=== PATIENT | female | born 1945 | race Caucasian/White ===

== ENCOUNTER → 2017-08-15 | Outpatient (CLI) | payer MEDICARE, BC ==
--- NOTE | 2017-08-16 08:24 | MM ---
Reason for exam: screening (asymptomatic). Last mammogram was performed 1 year and 4 months ago. History: Patient is postmenopausal. Family history of breast cancer in sister at age 61. Took hormonal contraceptives for 18 years. Physical Findings: A clinical breast exam by your physician is recommended on an annual basis and results should be correlated with mammographic findings. MG 3D Screening Mammo W/Cad Bilateral CC and MLO view(s) were taken. Prior study comparison: April 27, 2016, bilateral MG 3d screening mammo w/cad. April 18, 2015, bilateral MG 3d screening mammo w/cad. The breast tissue is almost entirely fat. Stable vascular calcifications. There is no discrete abnormality. No significant changes when compared with prior studies. ASSESSMENT: Benign, BI-RAD 2 RECOMMENDATION: Routine screening mammogram of both breasts in 1 year.
== END | disposition home or self-care (01) ==
LOC: RADMAMWWP 16:26
PROVIDERS: ATTEND Family Medicine
DX: Z12.31 Encounter for screening mammogram for malignant neoplasm of breast (principal)
CPT/HCPCS: 77063; 77067

== ENCOUNTER → 2018-05-16 | Outpatient (CLI) | payer MEDICARE, BC ==
--- NOTE | 2018-05-16 11:25 | US ---
EXAMINATION TYPE: US abdomen complete DATE OF EXAM: 05/16/2018 COMPARISON: NONE CLINICAL HISTORY: R10.11 RUQ PAIN,R10.9 ABD PAIN. Occasional upper abdomen pain x 5 years EXAM MEASUREMENTS: Liver Length: 14.3 cm Gallbladder Wall: 0.2 cm CBD: 0.3 cm Spleen: 9.7 cm Right Kidney: 10.0 x 4.6 x 5.0 cm Left Kidney: 10.8 x 5.6 x 5.3 cm Difficult and limited study due to patient body habitus Pancreas: visualized portions wnl, limited by overlying midline bowel gas Liver: mildly heterogeneous Gallbladder: wnl Evidence for sonographic Alvares's sign: no CBD: visualized portions wnl, limited by overlying bowel gas Spleen: wnl Right Kidney: wnl Left Kidney: wnl Upper IVC: wnl Abd Aorta: visualized portions wnl, distal portion obscured by overlying midline bowel gas IMPRESSION: 1. No suspicious acute ultrasound abnormalities. 2. Mild fatty infiltration of the liver.
== END | disposition home or self-care (01) ==
LOC: RADUSWWP 09:23
PROVIDERS: ATTEND Family Medicine
DX: K76.0 Fatty (change of) liver, not elsewhere classified (principal); R10.11 Right upper quadrant pain
CPT/HCPCS: 76700

== ENCOUNTER → 2018-08-18 | Outpatient (CLI) | payer MEDICARE, BC ==
--- NOTE | 2018-08-20 09:00 | MM ---
Reason for exam: screening (asymptomatic). Last mammogram was performed 1 year ago. History: Patient is postmenopausal. Family history of breast cancer in sister at age 61. Took hormonal contraceptives for 18 years. Physical Findings: A clinical breast exam by your physician is recommended on an annual basis and results should be correlated with mammographic findings. MG 3D Screening Mammo W/Cad Bilateral CC and MLO view(s) were taken. Prior study comparison: August 15, 2017, bilateral MG 3d screening mammo w/cad. April 27, 2016, bilateral MG 3d screening mammo w/cad. There are scattered fibroglandular densities. No significant changes when compared with prior studies. ASSESSMENT: Negative, BI-RAD 1 RECOMMENDATION: Routine screening mammogram of both breasts in 1 year.
== END | disposition home or self-care (01) ==
LOC: RADMAMWWP 10:52
PROVIDERS: ATTEND Family Medicine
DX: Z12.31 Encounter for screening mammogram for malignant neoplasm of breast (principal)
CPT/HCPCS: 77063; 77067

== ENCOUNTER → 2019-01-07 | Outpatient (CLI) | payer MEDICARE, BC ==
--- NOTE | 2019-01-07 12:53 | CT ---
EXAMINATION TYPE: CT brain wo con DATE OF EXAM: 01/07/2019 COMPARISON: None HISTORY: Episodes of visual disturbances, arm numbness and dizziness. CT DLP: [address] of the brain was performed. The ventricles, basal cisterns and sulci overlying the cerebral convexities demonstrate mild enlargem ent. There is no evidence for intracranial hemorrhage or sulcal effacement. There is decreased attenuation about the periventricular white matter and deep white matter of both c erebral hemispheres, compatible with chronic small vessel ischemia. Differential diagnosis does inclu de demyelination. No mass effects are seen.No midline shift. Osseous calvarium is intact. If symptoms persist consider MRI. IMPRESSION: 1. Age related atrophic and chronic small vessel ischemic change without acute intracranial process s een at this time.
--- NOTE | 2019-01-07 13:45 | XR ---
EXAMINATION TYPE: XR cervical spine comp DATE OF EXAM: 01/07/2019 COMPARISON: None HISTORY: Chronic neck pain TECHNIQUE: Five-view cervical spine FINDINGS: Facet degenerative changes are noted. There is foraminal narrowing on the right at C3-4 and C5-6. Minimal left foraminal narrowing is present C3-4 The prevertebral space is normal. Anterior vertebral body spurring is noted. Posterior spinal lamella r line is intact. Disc heights are preserved. IMPRESSION: 1. Degenerative facet changes and some foraminal narrowing the upper cervical spine discussed above.
== END | disposition home or self-care (01) ==
LOC: RADCTMAIN 12:11
PROVIDERS: ATTEND Family Medicine
DX: G31.1 Senile degeneration of brain, not elsewhere classified (principal); I67.82 Cerebral ischemia; M48.02 Spinal stenosis, cervical region; M47.812 Spondylosis without myelopathy or radiculopathy, cervical region
CPT/HCPCS: 70450; 72050

== ENCOUNTER → 2020-01-22 | Outpatient (CLI) | payer MEDICARE, BC ==
--- NOTE | 2020-01-26 13:53 | MM ---
Reason for exam: screening (asymptomatic). Last mammogram was performed 1 year and 5 months ago. History: Patient is postmenopausal. Family history of breast cancer in sister at age 61. Took hormonal contraceptives for 18 years. Physical Findings: A clinical breast exam by your physician is recommended on an annual basis and results should be correlated with mammographic findings. MG 3D Screening Mammo W/Cad Bilateral CC and MLO view(s) were taken. Prior study comparison: August 18, 2018, bilateral MG 3d screening mammo w/cad. August 15, 2017, bilateral MG 3d screening mammo w/cad. There are scattered fibroglandular densities. No significant changes when compared with prior studies. ASSESSMENT: Benign, BI-RAD 2 RECOMMENDATION: Routine screening mammogram of both breasts in 1 year.
== END | disposition home or self-care (01) ==
LOC: RADMAMWWP 10:00
PROVIDERS: ATTEND Family Medicine
DX: Z12.31 Encounter for screening mammogram for malignant neoplasm of breast (principal)
CPT/HCPCS: 77063; 77067

== ENCOUNTER → 2021-03-17 | Outpatient (CLI) | payer MEDICARE, BC ==
--- NOTE | 2021-03-17 13:49 | MM ---
Reason for exam: additional evaluation requested from prior study. Last mammogram was performed 1 year and 2 months ago. History: Patient is postmenopausal. Family history of breast cancer in sister at age 61. Took hormonal contraceptives for 18 years. Physical Findings: Nurse did not find any significant physical abnormalities on exam. MG 3D Diag Mammo W/Cad SHANNA Bilateral CC and MLO view(s) were taken. Prior study comparison: January 22, 2020, bilateral MG 3d screening mammo w/cad. August 18, 2018, bilateral MG 3d screening mammo w/cad. August 15, 2017, bilateral MG 3d screening mammo w/cad. There are scattered fibroglandular densities. No significant new findings when compared with previous films. These results were verbally communicated with the patient and result sheet given to the patient on 03/17/21. ASSESSMENT: Benign, BI-RAD 2 RECOMMENDATION: Routine screening mammogram of both breasts in 1 year.
== END | disposition home or self-care (01) ==
LOC: RADMAMWWP 12:49
PROVIDERS: ATTEND Family Medicine
DX: R92.2 Inconclusive mammogram (principal); Z80.3 Family history of malignant neoplasm of breast; Z78.0 Asymptomatic menopausal state
CPT/HCPCS: 77066; G0279; 77062

== ENCOUNTER 2021-07-04 13:29 | Observation (INO) | payer MEDICARE, BC ==
[2021-07-04 14:23] LABS: Basophils % (A) 0 %; Eosinophils # (A) 0.1 k/uL (0-0.7); Eosinophils % (A) 1 %; HCT 42.7 % (34.0-46.0); HGB 14.2 gm/dL (11.4-16.0); Lymphocytes # (A) 1.6 k/uL (1.0-4.8); Lymphocytes % (A) 20 %; MCH 29.7 pg (25.0-35.0); MCHC 33.2 g/dL (31.0-37.0); MCV 89.2 fL (80.0-100.0); Mean Platelet Volume 7.4; Monocytes # (A) 0.5 k/uL (0-1.0); Monocytes % (A) 6 %; Neutrophils # (A) 5.5 k/uL (1.3-7.7); Neutrophils % (A) 70 %; Platelet Count 210 k/uL (150-450); RBC 4.79 m/uL (3.80-5.40); RDW 13.8 % (11.5-15.5); WBC 7.8 k/uL (3.8-10.6)
--- NOTE | 2021-07-04 14:27 | ED ---
Neuro HPI - General Chief Complaint: Neuro Symptoms/Deficit Stated Complaint: stroke symptoms Source: patient Mode of arrival: wheelchair Limitations: no limitations - History of Present Illness Is the patient presenting with stroke symptoms?: Yes - Related Data Allergies/Adverse Reactions: Allergies Allergy/AdvReac Type Severity Reaction Status Date / Time cephalexin [From Keflex] Allergy Unknown Verified 07/04/21 13:38 Childhood Review of Systems ROS Statement: Those systems with pertinent positive or pertinent negative responses have been documented in the HPI. ROS Other: All systems not noted in ROS Statement are negative. General Exam Limitations: no limitations Stroke MDM - Lab Data Result diagrams: 07/04/21 14:04 07/04/21 14:04 Lab Results 07/04/21 07/04/21 07/04/21 Range/Units 14:04 14:04 14:04 WBC 7.8 (3.8-10.6) k/uL RBC 4.79 (3.80-5.40) m/uL Hgb 14.2 (11.4-16.0) gm/dL Hct 42.7 (34.0-46.0) % MCV 89.2 (80.0-100.0) fL MCH 29.7 (25.0-35.0) pg MCHC 33.2 (31.0-37.0) g/dL RDW 13.8 (11.5-15.5) % Plt Count 210 (150-450) k/uL MPV 7.4 Neutrophils % 70 % Lymphocytes % 20 % Monocytes % 6 % Eosinophils % 1 % Basophils % 0 % Neutrophils # 5.5 (1.3-7.7) k/uL Lymphocytes # 1.6 (1.0-4.8) k/uL Monocytes # 0.5 (0-1.0) k/uL Eosinophils # 0.1 (0-0.7) k/uL Basophils # 0.0 (0-0.2) k/uL PT 10.2 (9.0-12.0) sec INR 0.9 (<1.2) APTT 24.5 (22.0-30.0) sec Sodium 139 (137-145) mmol/L Potassium 4.2 (3.5-5.1) mmol/L Chloride 108 H (98-107) mmol/L Carbon Dioxide 21 L (22-30) mmol/L Anion Gap 10 mmol/L BUN 16 (7-17) mg/dL Creatinine 1.00 (0.52-1.04) mg/dL Est GFR (CKD-EPI)AfAm 65 (>60 ml/min/1.73 sqM) Est GFR (CKD-EPI)NonAf 56 (>60 ml/min/1.73 sqM) Glucose 114 H (74-99) mg/dL Calcium 9.5 (8.4-10.2) mg/dL Total Bilirubin 0.6 (0.2-1.3) mg/dL AST 28 (14-36) U/L ALT 17 (4-34) U/L Alkaline Phosphatase 108 (38-126) U/L Troponin I (0.000-0.034) ng/mL Total Protein 7.7 (6.3-8.2) g/dL Albumin 4.1 (3.5-5.0) g/dL 07/04/21 Range/Units 14:04 WBC (3.8-10.6) k/uL RBC (3.80-5.40) m/uL Hgb (11.4-16.0) gm/dL Hct (34.0-46.0) % MCV (80.0-100.0) fL MCH (25.0-35.0) pg MCHC (31.0-37.0) g/dL RDW (11.5-15.5) % Plt Count (150-450) k/uL MPV Neutrophils % % Lymphocytes % % Monocytes % % Eosinophils % % Basophils % % Neutrophils # (1.3-7.7) k/uL Lymphocytes # (1.0-4.8) k/uL Monocytes # (0-1.0) k/uL Eosinophils # (0-0.7) k/uL Basophils # (0-0.2) k/uL PT (9.0-12.0) sec INR (<1.2) APTT (22.0-30.0) sec Sodium (137-145) mmol/L Potassium (3.5-5.1) mmol/L Chloride (98-107) mmol/L Carbon Dioxide (22-30) mmol/L Anion Gap mmol/L BUN (7-17) mg/dL Creatinine (0.52-1.04) mg/dL Est GFR (CKD-EPI)AfAm (>60 ml/min/1.73 sqM) Est GFR (CKD-EPI)NonAf (>60 ml/min/1.73 sqM) Glucose (74-99) mg/dL Calcium (8.4-10.2) mg/dL Total Bilirubin (0.2-1.3) mg/dL AST (14-36) U/L ALT (4-34) U/L Alkaline Phosphatase (38-126) U/L Troponin I <0.012 (0.000-0.034) ng/mL Total Protein (6.3-8.2) g/dL Albumin (3.5-5.0) g/dL EKG demonstrates sinus rhythm with occasional PVCs. Rate of 93. NH interval 128. QRS 80. QTC 388. No acute ST segment elevations. Q wave in lead 3 07/04/21 14:26 Past Medical History Past Medical History: GERD/Reflux History of Any Multi-Drug Resistant Organisms: None Reported Past Surgical History: Hysterectomy Past Psychological History: No Psychological Hx Reported Smoking Status: Never smoker Past Alcohol Use History: None Reported Past Drug Use History: None Reported Course Vital Signs 07/04/21 13:33 Temperature 98.4 F Pulse Rate 79 Respiratory 18 Rate Blood Pressure 162/75 O2 Sat by Pulse 97 Oximetry Disposition Clinical Impression: Right facial numbness, TIA (transient ischemic attack) Disposition: ADMITTED IP TO THIS HOSP Condition: Stable Is patient prescribed a controlled substance at d/c from ED?: No Referrals: Maria Ndiaye MD [Primary Care Provider] - 1-2 days Decision to Admit Reason: Admit from EC Decision Date: 07/04/21 Decision Time: 15:41
--- NOTE | 2021-07-04 14:31 | XR ---
EXAMINATION TYPE: XR chest 2V DATE OF EXAM: 07/04/2021 COMPARISON: Chest x-ray June 05, 2011 HISTORY: Altered mental status and weakness. TECHNIQUE: Frontal and lateral views of the chest are obtained. FINDINGS: There is mild chronic parenchymal changes without suspicious new focal air space opacity, pleural effusion, or pneumothorax seen. The cardiac silhouette size remains within normal limits. Ol d fracture deformity left proximal humerus. IMPRESSION: Chronic changes without acute pulmonary process.
[2021-07-04 14:37] LABS: Albumin 4.1 g/dL (3.5-5.0); Calcium 9.5 mg/dL (8.4-10.2); Potassium 4.2 mmol/L (3.5-5.1); Total Bilirubin 0.6 mg/dL (0.2-1.3); Total Protein 7.7 g/dL (6.3-8.2)
[2021-07-04 14:41] LABS: INR 0.9 (<1.2); Partial Thromboplastin Time 24.5 sec (22.0-30.0); Prothrombin Time 10.2 sec (9.0-12.0)
--- NOTE | 2021-07-04 15:02 | CT ---
EXAMINATION TYPE: CT brain wo con for TPA DATE OF EXAM: 07/04/2021 HISTORY: Acute onset Neuro deficit, suspected stroke. CT DLP: 1498 mGycm. Automated Exposure Control for Dose Reduction was Utilized. TECHNIQUE: CT scan of the head is performed without contrast. COMPARISON: CT brain January 07, 2019. FINDINGS: There is no acute intracranial hemorrhage or midline shift identified. There is mild diff use ventricular and sulcal prominence consistent with diffuse age-related cerebral atrophy redemonstr ated. There is mild low-attenuation in the periventricular white matter consistent with chronic smal l vessel ischemic change redemonstrated. Infarct right frontal parietal region axial image 33 is new from 2019 but suspected old in age. The globes are intact and the visualized sinuses are clear. IMPRESSION: As above.
--- NOTE | 2021-07-04 15:11 | CT ---
EXAMINATION TYPE: CT angio head neck DATE OF EXAM: 07/04/2021 HISTORY: Neuro deficit, suspected stroke. COMPARISON: None. CT DLP: 1498 mGycm. Automated Exposure Control for Dose Reduction was Utilized. TECHNIQUE: CTA scan of the head and neck are performed with IV Contrast, patient injected with 65ml mL of Isovue 370, axial images are obtained, coronal and sagittal reformatted images are reviewed. 3D reconstructed images are created on an independent workstation and reviewed. FINDINGS: Carotid/Vascular Structures: Normal 3 vessel origin from the aortic arch. No significant plaque or st enosis in the common or internal carotid arteries bilaterally including a level of the carotid bulbs appear patent external carotid arteries bilaterally without significant stenosis. There is dominant left vertebral artery. Vertebral arteries are patent to basilar junction. There is no significant focal stenosis or aneurysm in the posterior circulation. Small caliber but patent left posterior communicating artery. Hypoplastic right posterior communicating artery. Images of the anterior circulation show patent small caliber anterior communicating artery. There is no significant focal stenosis or aneurysm in the anterior circulation. Other: No additional significant abnormality. IMPRESSION: No significant stenosis in common or internal carotid arteries. No aneurysm or significa nt stenosis at the level of the saxman of [place]. NASCET criteria was used in interpretation of this exam?
[2021-07-04] MEDS ORDERED: ASPIRIN 325 MG TAB PO STA (15:23)
[2021-07-04] MEDS ORDERED: ALPRAZolam 0.25 MG TAB PO PRN (16:40)
[2021-07-04] MEDS ORDERED: ACETAMINOPHEN TAB 500 MG TAB PO PRN (16:40)
--- NOTE | 2021-07-04 16:55 | P.CNNES ---
History of Present Illness Consult date: 07/04/21 Requesting physician: Trinh Shepard Reason for Consult: right facial numbness. Possible TIA History of Present Illness: This is a 75-year-old right-handed dominant woman with medical history of GERD, uveitis of left eye who presented emergency department on 07-04-2021 because of right facial numbness as well as right upper extremity numbness. She said she noticed at 11am today she has numbness over the right upper side of the lip that lasted for 2 minutes then resolved. Then later she noticed numbness of the righ t index finger as well as middle finger and resolved within few minutes. She denies of any focal weakness, difficulty getting her words out, swallowing. She denies of any new visual disturbance. She denies any knowledge of history of stroke. She does have uveitis of the left eye and is on eye drops (prednisone). She denies being on any antiplatelets or statin. She sometimes has pain in her posterior neck when she bends over but denies any radiation of pain and feels pain is chronic. Patient denies history of seizures. She denies any LOC associated with today's episodes, urinary or bowel incontinence. Some of the workup in the hospital consisted of: Initial vital signs was blood pressure 162/75, heart rate of 79, respiratory of 18, temperature of 98.4 Fahrenheit oral, pulse ox of 97% at room air. CBC with differential is unremarkable. Chemistry panel is chloride is 108 otherwise the rest of the chemistry panel is unremarkable Calcium is 9.5 the, AST of 28, ALT of 17. PT, PTT and INR is within normal limits CT of the head is reported as there is an infarct in the right frontal parietal region which is new from 2019 but suspect old and aged. Otherwise there is no intracranial hemorrhage or midline shift and the patient has chronic small vessel ischemic changes. Otherwise there is no acute or subacute ischemia. I personally reviewed the CT of the head and I agree with report that. I don't feel there is any acute subacute ischemia. I agree there is an old stroke over the right frontal parietal region. CT angiography of the head and neck is reported as the negative. EKG is reported as sinus rhythm with occasional ventricle premature complex. Moderate voltage criteria for left atrial atrophy, consider normal variant. Borderline EKG. Review of Systems Review of system: The 12 point system was reviewed and apparent positive and negative per HPI. Past Medical History Past Medical History: GERD/Reflux History of Any Multi-Drug Resistant Organisms: None Reported Past Surgical History: Hysterectomy Past Psychological History: No Psychological Hx Reported Smoking Status: Never smoker Past Alcohol Use History: None Reported Past Drug Use History: None Reported Medications and Allergies Home Medications Medication Instructions Recorded Confirmed Type Cetirizine HCl [Zyrtec] 10 mg PO DAILY 07/04/21 07/04/21 History Lysine 500 mg PO DAILY 07/04/21 07/04/21 History Multivitamins, Thera [Multivitamin 1 tab PO DAILY 07/04/21 07/04/21 History (formulary)] Omeprazole 20 mg PO AC-[id number] 07/04/21 07/04/21 History prednisoLONE ACETATE 1% OPHTH 1 drop LEFT EYE BID 07/04/21 07/04/21 History [Pred Forte 1%] Allergies Allergy/AdvReac Type Severity Reaction Status Date / Time cephalexin [From Keflex] Allergy Unknown Verified 07/04/21 16:04 Childhood Physical Examination - Vital Signs Vital Signs: Vital Signs Temp Pulse Resp BP Pulse Ox 07/04/21 13:33 98.4 F 79 18 162/75 97 Intake and Output 07/04/21 07/04/21 07/04/21 06:59 14:59 22:59 Other: Weight 102.875 kg GENERAL: The patient is lying in bed and is not in acute distress. CHEST: The heart rate is regular rate rhythm. No murmurs to auscultation. No carotid bruit bilaterally. LUNG: Clear to auscultation bilaterally no wheezing noted throughout. Not labored breathing. ABDOMEN/GI: Bowel sounds present in all 4 quadrants. No tenderness to palpation throughout. NEUROLOGICAL: Higher mental function: The patient is awake, alert, oriented to self, place and time. Patient is following commands. No aphasia and no neglect. Cranial nerves: The pupils are round, appears unequal right is 2-3mm while left is 3-4mm and feel the left is slightly larger with ptosis of left eye (chronic since has uveitis per patient). Pupils are sluggishly reactive to light bilaterally. equal and reactive to light and accommodation. Visual varela are full to confrontation throughout. Extraocular movement is intact no nystagmus is noted. Facial sensation is normal to touch throughout. The facial strength is normal throughout. Hearing is moderately to severely decreased bilaterally to hand rub. Tongue is midline and moved [id number] without any difficulty. No dysarthria is noted. Shoulder shrug is normal bilaterally. Motor: Gait is deferred. The strength is limited over the left distal upper extremity since pain over IV site. Otherwise 5 over 5 throughout. Normal tone and bulk. Cerebellum: Normal finger to nose bilaterally. Sensation: Sensation is normal to touch throughout. Reflexes (right/left): 2+ throughout. Plantars are mute bilaterally. Results - Laboratory Findings CBC and BMP: 07/04/21 14:04 07/04/21 14:04 Abnormal Lab Findings: Abnormal Labs 07/04/21 14:04 Chloride 108 H Carbon Dioxide 21 L Glucose 114 H Assessment and Plan Assessment: Numbness over the right side of upper face and right hand (index finger and middle finger). Probable transient ischemic attack. Chronic neck pain History of old stroke over the right frontal parietal region seen on CT (patient not aware that she had stroke) Uveitis of left eye (has ptosis) GERD Plan: In the ED the patient was started on the aspirin 325 daily and was given a loading dose of aspirin 325 once. Patient was also started on Lipitor 40 mg daily and that is to be continued for secondary stroke prophylaxis I ordered MRI of the brain and C-spine. Patient stated if by tomorrow she does not have imaging performed she wants to consider getting them as outpatient. Ordered 2-D echo Ordered TSH, hemoglobin A1c, vitamin B12, folate Lipid panels ordered and is pending PT, OT and ASSOCIATE TECHNICIAN are is consulted Continue neuro checks On cardiac monitoring We'll defer the rest of the medical management to the primary team. For DVT prophylaxis: Was started on subq heparin by primary team. Upon discharge recommend the patient follow up with a neurologist within 2 weeks. The patient was discussed with the patient and her friend (who is at bedside). Thank you for consultation. Micheal Wisdom M.D. Neuro-hospitalist Time with Patient: Greater than 30
--- NOTE | 2021-07-04 17:04 | HP ---
HISTORY AND PHYSICAL DATE OF SERVICE: 07/04/2021 CHIEF COMPLAINT: Numbness of the right side of the face as well as numbness of the medial two fingers. HISTORY OF PRESENT ILLNESS: This 75-year-old woman with a past medical history of GERD, hysterectomy, being followed by Dr. Maria Ndiaye in the outpatient setting, was complaining of numbness of the right side of the face and fingers also. The patient came to the ER after going to a clinic and STROKE CODE was called. The patient does not have any weakness. CT of the brain was done which was reviewed personally by me. It showed diffuse age- related cerebral atrophy, periventricular ischemic changes. Right frontoparietal old infarct was noted. The patient was admitted for further evaluation and treatment. There is no history of any fever, rigors or chills at this time. PAST MEDICAL HISTORY: Gastroesophageal reflux disease, hysterectomy. HOME MEDICATIONS: Home medications include ophthalmic drops, multivitamin. Doses and other medications are reviewed. ALLERGIES: CEPHALEXIN. FAMILY HISTORY: No history of heart disease or strokes in his family. SOCIAL HISTORY: No history of smoking. No history of alcohol. REVIEW OF SYSTEMS: Fourteen-point review of systems negative except as mentioned above. PHYSICAL EXAMINATION: Pulse 79, blood pressure 162/74, respiration 18. HEENT: Conjunctivae normal. NECK: No jugular venous distention. No carotid bruit. No lymph node enlargement. CARDIOVASCULAR: S1, S2 muffled. No S3. No S4. RESPIRATION: Breath sounds diminished at the bases. No rhonchi. No crackles. ABDOMEN: Soft, nontender. No mass palpable. LEGS: No edema. No swelling. NERVOUS SYSTEM: Higher functions as mentioned earlier. Cranial nerves are normal. No focal motor or sensory deficit. LYMPHATICS: No lymph node palpable in neck, axillae or groin. SKIN: No ulcer, rash, bleeding. JOINTS: No active deforming arthropathy. LABS: CBC within normal limits. Glucose 114. ASSESSMENT: 1. Numbness of the right face and right arm; possible acute transient ischemic attack involving the left hemisphere. 2. 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 3. Hypertension. 4. Gastroesophageal reflux disease. RECOMMENDATIONS AND DISCUSSION: In this 75-year-old woman who presented with multiple medical issues, we will monitor the patient closely, continue the current management. Continue symptomatic treatment. Neurovascular workup. Neurology consultation. Aspirin, Lipitor. Neuro checks. Prognosis guarded. Further recommendations to follow. See orders for further details. MMODL / IJN: [id number] / MTDD
[2021-07-04] MEDS: ATORVASTATIN 40 MG TAB PO SCH (17:26)
[2021-07-05] MEDS: prednisoLONE ACETATE 1% OPHTH DROPS 5 ML BTL LEFT EYE SCH ×2 (05:01→10:14)
[2021-07-05] MEDS: HEPARIN SODIUM,PORCINE/PF 5,000 UNIT/0.5 ML SYRINGE SQ SCH ×3 (05:01→10:16)
[2021-07-05 05:40] LABS: Folate, Serum >20.00 ng/mL (4.40-31.00)
[2021-07-05] MEDS ORDERED: NON FORMULARY DRUG (Omeprazole [Omeprazole] 20 MG Capsule.Dr) PO SCH (07:30)
[2021-07-05] MEDS ORDERED: PANTOPRAZOLE 40 MG TABLET PO SCH (07:30)
[2021-07-05] MEDS ORDERED: ASPIRIN 325 MG TAB PO SCH (09:00)
[2021-07-05] MEDS ORDERED: MULTIVITAMINS, THERA 1 EACH TAB PO SCH (09:00)
[2021-07-05] MEDS ORDERED: LORATADINE 10 MG TAB PO SCH (09:00)
--- NOTE | 2021-07-05 09:48 | P.PN ---
Subjective Progress Note Date: 07/05/21 The patient is seen at bedside and denies any further episode of numbness on face or hand. She continues to feel she is at baseline. Objective - Vital Signs Vital signs: Vital Signs Temp 96.4 F L 07/05/21 04:00 Pulse 81 07/05/21 04:00 Resp 18 07/05/21 04:00 BP 124/72 07/05/21 04:00 Pulse Ox 96 07/05/21 04:00 Intake & Output 07/04/21 07/05/21 07/05/21 18:59 06:59 18:59 Weight 102.875 kg 102.875 kg Other: Voiding Method Toilet # Voids 1 - Exam GENERAL: The patient is lying in bed and is not in acute distress. NEUROLOGICAL: Higher mental function: The patient is awake, alert, oriented to self, place and time. Patient is following commands. No aphasia and no neglect. Cranial nerves: The pupils are round, appears unequal right is 2-3mm while left is 3-4mm and feel the left is slightly larger with ptosis of left eye (chronic s nathan has uveitis per patient). Pupils are sluggishly reactive to light bilaterally. equal and reactive to light and accommodation. Visual varela are full to confrontation throughout. Extraocular movement is intact no nystagmus is noted. Facial sensation is normal to touch throughout. The facial strength is normal throughout. Hearing is moderately to severely decreased bilaterally to hand rub. Tongue is midline and moved [id number] without any difficulty. No dysarthria is noted. Shoulder shrug is normal bilaterally. Motor: Gait is deferred. The strength is limited over the left distal upper extremity since pain over IV site. Otherwise 5 over 5 throughout. Normal tone and bulk. Cerebellum: Normal finger to nose bilaterally. Sensation: Sensation is normal to touch throughout. Reflexes (right/left): 2+ throughout. Plantars are mute bilaterally. WORK-UP: CBC with differential is unremarkable. Chemistry panel is chloride is 108 otherwise the rest of the chemistry panel is unremarkable Calcium is 9.5 the, AST of 28, ALT of 17. Vitamin B12 is 538 that. Serum folate is more than 20 TSH is 2.0 Hemoglobin A1c is 5.8. PT, PTT and INR is within normal limits CT of the head is reported as there is an infarct in the right frontal parietal region which is new from 2019 but suspect old and aged. Otherwise there is no intracranial hemorrhage or midline shift and the patient has chronic small vessel ischemic changes. Otherwise there is no acute or subacute ischemia. I personally reviewed the CT of the head and I agree with report that. I don't feel there is any acute subacute ischemia. I agree there is an old stroke over the right frontal parietal region. CT angiography of the head and neck is reported as the negative. - Labs CBC & Chem 7: 07/04/21 14:04 07/04/21 14:04 Labs: Abnormal Lab Results - Last 24 Hours (Table) 07/04/21 Range/Units 14:04 Chloride 108 H (98-107) mmol/L Carbon Dioxide 21 L (22-30) mmol/L Glucose 114 H (74-99) mg/dL Assessment and Plan Assessment: Numbness over the right side of upper face and right hand (index finger and middle finger). Probable transient ischemic attack. 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 Continue Lipitor 40 mg daily (not on statins at home) for secondary stroke prophylaxis MRI of the brain and C-spine is pending. 2-D echo and lipid panel are pending. PT, OT and DOMESTIC HELPER are is consulted Continue neuro checks On cardiac monitoring We'll defer the rest of the medical management to the primary team. For DVT prophylaxis: Was started on subq heparin by primary team. Upon discharge recommend the patient follow up with a neurologist within 2 weeks. The patient was discussed with the patient. If MRI Brain and C-spine are negative as well rest of neuro work-up then patient is clear from neurological perspective. Micheal Wisdom M.D. Neuro-hospitalist Time with Patient: Less than 30
[2021-07-05] MEDS: ATORVASTATIN 40 MG TAB PO SCH (10:03)
--- NOTE | 2021-07-05 12:18 | ECHOF ---
Referral Reason:stroke MEASUREMENTS -------- HEIGHT: 162.6 cm WEIGHT: 102.5 kg BP: RVIDd: 2.6 cm (< 3.3) IVSd: 1.2 cm (0.6 - 1.1) LVIDd: 3.9 cm (3.9 - 5.3) LVPWd: 1.5 cm (0.6 - 1.1) IVSs: 2.1 cm LVIDs: 1.5 cm LVPWs: 1.8 cm Ao Diam: 3.1 cm (2.0 - 3.7) AV Cusp: 1.8 cm (1.5 - 2.6) LA Diam: 2.9 cm (2.7 - 3.8) MV EXCURSION: 7.983 mm (> 18.000) MV EF SLOPE: 54 mm/s (70 - 150) EPSS: 1.4 cm MV E Dinesh: 0.75 m/s MV DecT: 183 ms MV A Dinesh: 0.86 m/s MV E/A Ratio: 0.88 RAP: 5.00 mmHg RVSP: 20.38 mmHg FINDINGS -------- Sinus rhythm. This was a technically difficult study with suboptimal views. The left ventricular size is normal. There is mild concentric left ventricular hypertrophy. Overa ll left ventricular systolic function is normal with, an EF between 55 - 60 %. The right ventricle is normal in size. The left atrial size is normal. The right atrium was not well visualized. Lumason used The aortic valve is trileaflet, and appears structurally normal. No aortic stenosis or regurgitation. The mitral valve is normal. There is trace mitral regurgitation. The tricuspid valve appears structurally normal. Trace tricuspid regurgitation present. Right misbah tricular systolic pressure is normal at < 35 mmHg. The pulmonic valve was not well visualized. There is no pulmonic regurgitation present. The aortic root size is normal. IVC Not well visulized. There is no pericardial effusion. CONCLUSIONS -------- 1. This was a technically difficult study with suboptimal views. 2. There is mild concentric left ventricular hypertrophy. 3. Overall left ventricular systolic function is normal with, an EF between 55 - 60 %. 4. The aortic valve is trileaflet, and appears structurally normal. No aortic stenosis or regurgitati on. 5. There is trace mitral regurgitation. 6. Trace tricuspid regurgitation present. 7. There is no pericardial effusion. RESEARCH BIOLOGIST: Alexia Christensen RDCS
[2021-07-05 12:25] VITALS: PULSE 85; RESP 16
[2021-07-05 15:25] VITALS: BP 140/84; TEMP 98.1
--- NOTE | 2021-07-05 18:31 | MR ---
EXAMINATION TYPE: MR brain/cspine wo DATE OF EXAM: 07/05/2021 COMPARISON: None HISTORY: Right face and hand numbness. Has neck pain. Multiplanar multi echo imaging of the brain and cervical spine without contrast. On the FLAIR images there is extensive increased signal in the periventricular white matter in a patc hy distribution. There is coalescent areas measuring up to 1.5 cm in the right posterior parietal lob e. There is some cortical increased signal also in the right posterior parietal lobe. Abnormality ove rall measures 4.5 cm. On the diffusion images there are punctate areas of increased signal in the cor riri left parietal lobe suggestive of small acute infarct. The brainstem is intact. There is no eviden ce of posterior fossa mass. There is mild cerebral atrophy. The corpus callosum is intact. Sella turcica appears normal. There is no evidence of orbital mass. Op tic chiasm appears normal. Cervical vertebra have normal alignment. Disc spaces are fairly normal. There is minimal posterior di sc bulging at C4-5 and C6-7. There is developmentally adequate spinal canal. No spinal stenosis. Cerv ical spinal cord has normal signal pattern. There is no edema. There is no evidence of cervical mary ed mass. I see no bony destructive process. There is no compression fracture. IMPRESSION: White matter signal changes and also cortical abnormality right posterior parietal lobe consistent wi th old infarct. Patchy white matter signal changes likely related to microvascular ischemia. Demyelin ating disease not excluded. There is evidence of new small punctate cortical infarct left parietal lobe. These foci measure up to 4 mm. MR scan of the cervical spine is fairly normal for age. No evidence of demyelinating disease. No spin al stenosis.
[2021-07-05] MEDS ORDERED: CLOPIDOGREL 75 MG TAB PO STA (18:55)
--- NOTE | 2021-07-06 09:49 | P.DS ---
Providers Date of admission: 07/04/21 15:23 Expected date of discharge: 07/05/21 Attending physician: Ovidio Martin Consults: 07/04/21 15:24 Consult Physician Urgent Consulting Provider: Micheal Wisdom Consult Reason/Comments: right facial numbness, possible tia Do you want consulting provider notified?: Yes Primary care physician: Maria Ndiaye Hospital Course: Final diagnosis Numbness of the right face and right arm, possibly acute transient ischemic attack involving the left hemisphere, resolved Old right frontal parietal infarction Hypertension gastroesophageal reflux disease Discharge disposition Patient is being discharged in a stable condition with guarded prognosis to home. Patient will follow-up with Dr. Maria ndiaye in the outpatient setting upon discharge. Patient also needs follow-up with neurology this week. Patient will continue on aspirin and Plavix along with statin on discharge. Total time taken is greater than 35 minutes. Hospital course This is a 75-year-old female who was recently admitted with numbness of the right hand and of the face and fingers also and was being closely monitored. Code stroke was activated and neurology following closely. CT of the brain showed diffuse age-related cerebral atrophy, periventricular ischemic changes and right frontal parietal old infarct was noted and neurology recommending MRI. MRI was done which shows coalescent areas measuring up to 1.5 cm in the right posterior parietal lobe with extensive increased signal in the periventricular white matter in a patchy distribution. There is some cortical increased signal also in the right posterior parietal lobe in the abnormality overall measures 4.5 cm. On the diffusion images there are punctate areas of increased signal in the cortex left parietal lobe suggestive of small acute infarct with the brainstem being intact and no evidence of posterior fossa mass with some mild cerebral atrophy. No evidence of orbital mass and corpus callosum is intact and sella turcica appears normal along with the optic chiasm. The portion of cervical spine MRI is fairly normal for age with no evidence of demyelinating disease and no spinal stenosis. Patient also underwent 2-D echo which shows some mild concentric left ventricular hypertrophy with overall LV systolic function being normal with an EF of 55-60% with a trace of mitral and tricuspid regurgitation present. Discuss with neurology on MRI findings and patient will continue on aspirin and Plavix for 21 days and then may continue with just aspirin along with statin. Strongly encouraged the patient and recommended neurology follow-up this week and urology office was contacted and will call patient for appointment. Patient states symptoms have completely resolved and would like to go home. Per neurology patient is medically stable and again encouraged to follow-up closely with neurology this week or early next week. Recommend repeat labs in the outpatient setting and following up with primary care provider this week. A copy of this dictation will be sent to primary care provider Dr. Maria Ndiaye. Currently no reports of chest pain, shortness of breath, or palpitations. Patient is afebrile. No reports of nausea or vomiting and patient is tolerating diet. Patient will be discharged home today. Guarded prognosis. On exam vital signs are stable. Cardio S1, S2 are muffled. Respiratory system shows diminished breath sounds at the bases with no wheezing or rhonchi noted. Abdomen is soft and nontender. Nervous system shows no focal deficits. Please refer to medication reconciliation sheet for a list of medications. The impression and plan of care has been dictated by Ivone Jernigan, nurse practitioner as directed. MD Joy I have performed a history and examination and MDM of this patient, discussed the same with the dictator, and agree with the dictator's assessment and plan as written ,documented as a scribe. Based on total visit time, I have performed more than 50% of the visit. Any additional findings or plans will be noted. Patient Condition at Discharge: Stable Plan - Discharge Summary Discharge Rx Participant: No New Discharge Prescriptions: New Aspirin EC [Ecotrin Low Dose] 81 mg PO DAILY 30 Days #30 tab Clopidogrel [Plavix] 75 mg PO DAILY 30 Days #30 tablet Atorvastatin [Lipitor] 40 mg PO DAILY 30 Days #30 tab Continue prednisoLONE ACETATE 1% OPHTH [Pred Forte 1%] 1 drop LEFT EYE BID Omeprazole 20 mg PO AC-BRKFST Multivitamins, Thera [Multivitamin (formulary)] 1 tab PO DAILY Cetirizine HCl [Zyrtec] 10 mg PO DAILY Lysine 500 mg PO DAILY Discharge Medication List Cetirizine HCl [Zyrtec] 10 mg PO DAILY 07/04/21 [History] Lysine 500 mg PO DAILY 07/04/21 [History] Multivitamins, Thera [Multivitamin (formulary)] 1 tab PO DAILY 07/04/21 [Histor y] Omeprazole 20 mg PO AC-BRKFST 07/04/21 [History] prednisoLONE ACETATE 1% OPHTH [Pred Forte 1%] 1 drop LEFT EYE BID 07/04/21 [History] Aspirin EC [Ecotrin Low Dose] 81 mg PO DAILY 30 Days #30 tab 07/05/21 [Rx] Atorvastatin [Lipitor] 40 mg PO DAILY 30 Days #30 tab 07/05/21 [Rx] Clopidogrel [Plavix] 75 mg PO DAILY 30 Days #30 tablet 07/05/21 [Rx] Follow up Appointment(s)/Referral(s): Sharmaine Crawley MD [REFERRING] - 1 Week (Office will call with appointment time and date. ) Maria Ndiaye MD [Primary Care Provider] - 07/11/21 1:00 pm Ambulatory/Diagnostic Orders: Complete Blood Count w/diff [LAB.AMB] Time Frame: 2 Days, Location: None Selected Patient Instructions/Handouts: Clopidogrel (By mouth), Transient Ischemic Attack (DC) Activity/Diet/Wound Care/Special Instructions: activity limited until follow up follow up with primary care on discharge follow up with neurology in one week continue with plavix and aspirin for 21 days and then may discontinue plavix after discussing and following up with neurology continue taking medications as prescribed continue current diet repeat labs in 2-3 days Discharge Disposition: HOME SELF-CARE
== END 2021-07-05 19:10 | disposition home or self-care (01) ==
LOC: EC 13:29 → 3SCARD 15:23
PROVIDERS: ADMIT Hospitalist; ATTEND Hospitalist
DX: R20.0 Anesthesia of skin (principal); Z86.73 Personal history of transient ischemic attack (TIA), and cerebral infarction without residual deficits; I11.9 Hypertensive heart disease without heart failure; K21.9 Gastro-esophageal reflux disease without esophagitis; G89.29 Other chronic pain; M54.2 Cervicalgia; H20.9 Unspecified iridocyclitis; H02.402 Unspecified ptosis of left eyelid; I49.3 Ventricular premature depolarization; Z20.822 Contact with and (suspected) exposure to COVID-19; Z71.9 Counseling, unspecified; Z88.1 Allergy status to other antibiotic agents; Z90.710 Acquired absence of both cervix and uterus
CPT/HCPCS: 99285; 36415; 93005; 97161; 97165; 92610; 92523; 80053; 84443; 82607; 82746; 84484; 85025; 85610; 85730; 83036; 87635; 71046; 70496; 70450; 70498; 70551; 72141; G0378 ×2; C8929; Q9950; Q9967; 93306

== ENCOUNTER → 2022-03-22 | Outpatient (CLI) | payer MEDICARE, BC ==
--- NOTE | 2022-03-22 17:35 | BD ---
EXAMINATION TYPE: Axial Bone Density DATE OF EXAM: 03/22/2022 COMPARISON: NONE CLINICAL HISTORY: 76 years year old Female. ICD-10 CODE: Z78.0 ASYMPTOMATIC MENOPAUSAL STATE Height: 63 Weight: 211.7 FRAX RISK QUESTIONS: Alcohol (3 or more units per day): NO Family History (Parent hip fracture): NO Glucocorticoids (More than 3mos): NO History of Fracture in Adulthood: SHOULDER Secondary Osteoporosis: 1. Type 1 Diabetes: NO 2. Hyperthyroidism: NO 3. Menopause before 45: NO 4. Malnutrition: NO 5. Chronic liver disease: NO Rheumatoid Arthritis: NO Current Tobacco Use: NO RISK FACTORS HISTORY OF: Hip Fracture (Right/Left): NO Spine Fracture: NO History of Wrist Fracture: NO When: NO Surgery to Spine/Hip(right/left)/Wrist (right/left): NO Family History of Osteoporosis: NO Active: YES Diet low in dairy products/other sources of calcium: NO Postmenopausal woman: YES Take estrogen and/or progesterone medications: NO Lost more than 2 inches in height since high school: YES Frequent falls: NO Poor Health: NO Hyperparathyroidism: NO Adrenal Insufficiency: NO MEDICATIONS: Prednisone or other steroids: NO Thyroid Medications: NO Osteoporosis Medications: NO Additional Medications: LIPITOR, PLAVIX, EXAM MEASUREMENTS: Bone mineral densitometry was performed using the GLG System. Bone mineral density as measured about the Lumbar spine is: ----- L1-L4(G/cm2): 1.281 T Score Values are as follows: ----- L1: 0.0 ----- L2: 0.8 ----- L3: 1.3 ----- L4: 0.8 ----- L1-L4: 0.8 Bone mineral density has: INCREASED 6.4 % since study of: 09/24/2007 Bone mineral density about the R hip (g/cm2): 0.735 Bone mineral density about the L hip (g/cm2): 0.692 T Score values are as follows: -----R Neck: -2.2 -----L Neck: -2.5 -----R Total: -2.0 -----L Total: -1.3 Bone mineral density has: DECREASED -24.0 % since study of: 09/24/2007 FRAX%s: The graph provided illustrates a 22.7% chance for a major osteoporotic fx and a 6.6% chance f or the hips probability for fx in 10 years time. IMPRESSION: Osteoporosis (T Score less than -2.5). There is increased fracture risk and therapy is usually indicated based on age. Re-Screen 1-2 years. NOTE: T-SCORE=SD OF THE YOUNG ADULT MEAN.
--- NOTE | 2022-03-23 08:22 | MM ---
Reason for Exam: Screening (asymptomatic). Last mammogram was performed 1 year(s) and 1 month(s) ago. Patient History: Menarche at age 12. First Full-Term at age 19. Hysterectomy at age 35. Postmenopausal. Patient used Hormonal Contraceptives for 18 years. Sister had breast cancer, age 61. Risk Values: Angela 5 year model risk: 3.6%. NCI Lifetime model risk: 7.7%. Prior Study Comparison: 08/18/2018 Bilateral Screening Mammogram, [facility]. 01/22/2020 Bilateral Screening Mammogram, [facility]. 03/17/2021 Bilateral Diagnostic Mammogram, [facility]. Tissue Density: There are scattered fibroglandular densities. Findings: Analyzed By CAD. There is no suspicious group of microcalcifications or new suspicious mass in either breast. Overall Assessment: Negative, BI-RAD 1 Management: Screening Mammogram of both breasts in 1 year. A clinical breast exam by your physician is recommended on an annual basis and results should be correlated with mammographic findings. Electronically signed and approved by: Mk Isaac M.D. Radiologis
== END | disposition home or self-care (01) ==
LOC: RADBDWWP 12:50
PROVIDERS: ATTEND Family Medicine
DX: Z12.31 Encounter for screening mammogram for malignant neoplasm of breast (principal); M81.0 Age-related osteoporosis without current pathological fracture; Z78.0 Asymptomatic menopausal state; Z80.3 Family history of malignant neoplasm of breast
CPT/HCPCS: 77063; 77067; 77080